=== PATIENT | male | born 2000 | race Caucasian/White ===

== ENCOUNTER 2020-06-21 08:14 | Emergency (ER) | payer MEDICAID ==
[~2020-06-21] VITALS: Ht 170.2 cm; Wt 77.1 kg
[2020-06-21 08:17] VITALS: Ht 170.2 cm; Wt 77.1 kg
[2020-06-21 12:00] VITALS: BP 130/78
== END 2020-06-21 12:02 | disposition home or self-care (01) ==
LOC: ED 08:14
DX: R56.9 Unspecified convulsions (principal); S43.005A Unspecified dislocation of left shoulder joint, initial encounter; S43.004A Unspecified dislocation of right shoulder joint, initial encounter; F12.10 Cannabis abuse, uncomplicated; F17.210 Nicotine dependence, cigarettes, uncomplicated; Z88.0 Allergy status to penicillin; X58.XXXA Exposure to other specified factors, initial encounter; Y93.89 Activity, other specified; Y92.89 Other specified places as the place of occurrence of the external cause; Y99.8 Other external cause status
CPT/HCPCS: Q0092

== ENCOUNTER 2020-06-21 20:38 | Emergency (ER) | payer MEDICAID ==
[~2020-06-21] VITALS: Ht 167.6 cm; Wt 69.9 kg
[2020-06-21 20:42] VITALS: Ht 167.6 cm; Wt 69.9 kg
[2020-06-21 21:49] VITALS: BP 137/86
== END 2020-06-21 21:49 | disposition home or self-care (01) ==
LOC: ED 20:38
DX: M25.512 Pain in left shoulder (principal); Z88.0 Allergy status to penicillin
CPT/HCPCS: 99406; J1885; Q0092